=== PATIENT | female | born 1955 | race Caucasian/White ===

== ENCOUNTER → 2018-06-16 | Outpatient (CLI) | payer BC ==
--- NOTE | 2018-06-16 09:55 | KCIC ---
MRI Brain without contrast History: Dystonia of the right hand for 6 years Technique: Multiplanar, multisequential noncontrast MR imaging was performed of the brain. Comparison: None Findings: There is no evidence of recent infarct or cytotoxic edema. The ventricles, sulci, and cisterns are within normal limits in size and configuration. There is no significant midline shift, intraaxial mass effect, or focal abnormal extra-axial fluid collection. There is no significant signal abnormality of the brain parenchyma. There is preservation of the major intracranial flow-voids at the skull base. The mastoid air cells are aerated. The cerebellar tonsils are normal in location. There is no significant abnormality of the pineal gland. Paranasal sinuses are overall aerated. There is preserved marrow signal of the clivus. There is some increased CSF signal of the optic nerve sheaths greater on the left. Pituitary gland is small. Impression: 1. There is some increased CSF signal of the optic nerve sheaths and small pituitary gland. Findings are nonspecific and could be incidental although can be associated with intracranial hypertension. No other significant intracranial abnormality is identified. Electronically signed by: Rishabh Earl MD (06/16/2018 9:52 AM) [id number]
== END | disposition home or self-care (01) ==
LOC: KCIC MRI 09:01
PROVIDERS: ATTEND Psychiatry & Neurology Neurology with Special Qualifications in Child Neurology
DX: G24.8 Other dystonia (principal)
CPT/HCPCS: 70551